=== PATIENT | female | born 1975 | race Caucasian/White ===

== ENCOUNTER 2018-04-22 13:53 | Emergency (ER) | payer OTHER ==
[2018-04-22] MEDS ORDERED: fentaNYL 100 MCG/2 ML SDV IVPUSH ONE (14:19)
[2018-04-22] MEDS ORDERED: Sodium Chloride 0.9% 10 ML Syringe FLUSH PRN (14:19)
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
[2018-04-22] MEDS ORDERED: Sodium Chloride 0.9% 1,000 ML IV SCH (14:30)
[2018-04-22] MEDS ORDERED: Sodium Chloride 0.9% 100 ML IV SCH (15:00)
[2018-04-22] MEDS ORDERED: Iopamidol 612 MG/ML 100 ML Bottle IV SCH (15:00)
== END 2018-04-22 16:22 | disposition home or self-care (01) ==
LOC: JP.ED 13:53
DX: S20.212A Contusion of left front wall of thorax, initial encounter (principal); S40.012A Contusion of left shoulder, initial encounter; V86.65XA Passenger of 3- or 4- wheeled all-terrain vehicle (ATV) injured in nontraffic accident, initial encounter
CPT/HCPCS: 71260; 96361; 96374; 99284; J3010; J7030; J7050; Q9967